=== PATIENT | female | born 1955 | race African-American/Black ===

== ENCOUNTER 2019-04-13 15:22 | Emergency (ER) | payer SELFPAY ==
--- OUTSIDE RECORDS SUMMARY | 2019-04-13 15:25 | XMS REPORT | Clinical Summary ---
Author Author Darrius Uatsdin Organization [facility] Address Unknown Phone Unavailable Care Team Providers Care Podiatric Technician Name Role Phone Mary Weeks MD PCP Allergies Comments Active Allergy Reactions Severity Noted Date No Known Drug Allergies 06/19/2016 Shellfish Derived Rash Low 04/06/2019 Medications End Date Status Medication Sig Dispensed Refills Start Date Active multivitamin capsule Take 1 0 capsule by mouth daily. Active cyanocobalamin, vitamin Inject as 0 B-12, (B-12 COMPLIANCE directed once INJ) a week. Active betamethasone APPLY 60 mL 0 dipropionate 0.05 % TOPICALLY TO 9 lotion AFFECTED AREA TWICE DAILY DIRECTED 11/18/2018 Discontinued furosemide (LASIX) 20 mg Take 0.5 30 tablet 0 tabletIndications: Fluid tablets (10 7 retention mg total) by mouth daily as needed (swelling). 11/18/2018 Discontinued betamethasone Apply 60 mL 0 dipropionate 0.05 % topically 2 7 lotionIndications: Eczema (two) times a of both upper extremities day. 12/02/2018 esomeprazole (NexIUM) 20 Take 1 30 capsule 0 MG capsuleIndications: capsule (20 9 Chest pain, unspecified mg total) by type mouth daily before breakfast for 14 days. Active Problems Problem Noted Date Fluid retention 02/11/2017 Overview: Uses lasix prn; states she has some SOB when walking up and down stairs. No chest pain. Had normal EKG in past. L ast Assessment & Plan: Check BNP and CMP for now; ok to continue prn lasix. Eczema of both upper extremities 02/11/2017 Overview: Uses steroid sparingly. L ast Assessment & Plan: Renew steroids. History of colonoscopy 02/11/2017 Overview: Normal - no polys - repeat due L ast Assessment & Plan: Will plan to re-evaluate at time of physical. Visual impairment 02/11/2017 Overview: Needs to see ophtho L ast Assessment & Plan: Will refer to [facility] Encounters Care Team Description Date Type Specialty Geeta Gifford MA 04/09/2019 Telephone Gastroenterology Mary Weeks MD Pre-operative clearance (Primary Dx) 04/07/2019 Office Visit Internal Medicine Mary Weeks MD 04/07/2019 Refill Internal Medicine Jovany De La Torre MD EGD 04/06/2019 Surgery Gastroenterology D[facility]aren thumb region, Michael Preston MD 04/06/2019 Anesthesia Gastroenterology Event Jovany De La Torre MD Visual impairment (Primary Dx) 04/06/2019 Hospital Gastroenterology Encounter Geeta Gifford MA 04/05/2019 Telephone Gastroenterology Jovany De La Torre MD 04/01/2019 Telephone Gastroenterology Jovany De La Torre MD Colon cancer screening (Primary Dx); Class 3 severe obesity in adult, unspecified BMI, unspecified obesity type, unspecified whether serious comorbidity present (HCC); Gastroesophageal reflux disease without esophagitis 03/26/2019 Office Visit Gastroenterology Geeta Gifford MA 03/25/2019 Telephone Gastroenterology Mary Weeks MD 03/08/2019 Telephone Internal Medicine Bossman Echols MD Richards, Sara K, FLORY Obesity, morbid, BMI 50 or higher (HCC) (Primary Dx) 03/02/2019 Consult Weight Management Bossman Echols MD Barthmare, Stefanie Claire, LPC Morbid obesity (HCC) 03/02/2019 Consult Weight Management Juma Goodman MD 02/23/2019 Telephone Gastroenterology Kamryn Braun MA Preop examination (Primary Dx); Morbid obesity (HCC) 02/23/2019 Orders Only General Surgery Bossman Echols MD Morbid obesity (HCC) (Primary Dx) 02/10/2019 Office Visit General Surgery Mary Weeks MD Chest pain, unspecified type 11/18/2018 Lab Lab Mary Weeks MD Chest pain, unspecified type (Primary Dx); Gastroesophageal reflux disease without esophagitis; Elevated BP without diagnosis of hypertension; Obesities, morbid (HCC) 11/18/2018 Office Visit Internal Medicine after 04/12/2018 Family History Medical History Relation Name Comments Lung cancer Brother Stroke Father Arthritis Mother Stroke Mother Colon cancer Neg Hx Colon polyps Neg Hx Relation Name Status Comments Brother Father Mother Social History Date Tobacco Use Types Packs/Day Years Used Never Smoker Smokeless Tobacco: Never Used Alcohol Use Drinks/Week oz/Week Comments No Sex Assigned at Date Recorded Not on file Industry Job Start Date Occupation Not on file Not on file Not on file Travel End Travel History Travel Start No recent travel history available. Last Filed Vital Signs Time Taken Vital Sign Reading 04/07/2019 12:06 PM CDT Blood Pressure 147/78 04/07/2019 12:06 PM CDT Pulse 61 04/07/2019 12:06 PM CDT Temperature 36.7 C (98.1 F) 04/07/2019 12:06 PM CDT Respiratory Rate 16 04/07/2019 12:06 PM CDT Oxygen Saturation 97% - Inhaled Oxygen - Concentration 04/07/2019 12:06 PM CDT Weight 122 kg (270 lb) 04/07/2019 12:06 PM CDT Height 162.6 cm (5' 4") 04/07/2019 12:06 PM CDT Body Mass Index 46.35 Plan of Treatment Care Team Description Date Type Specialty Mary Weeks MD [address] [facility] [address] [place] [address] [phone] 10/22/2019 Office Visit Internal Medicine Health Maintenance Due Date Last Done Comments BREAST CANCER SCREENING 2004 SHINGLES VACCINES (#1) 2004 INFLUENZA VACCINE 06/03/2019 COLONOSCOPY SCREENING 04/06/2024 04/06/2019, 04/06/2019 Procedures Comments Procedure Name Priority Date/Time Associated Diagnosis ECG 12-LEAD Routine 04/07/2019 Pre-operative clearance 11:37 AM CDT SURGICAL PATHOLOGY Routine 04/06/2019 REQUEST 12:12 PM CDT COLONOSCOPY 04/06/2019 Colon cancer screening 10:00 AM CDT Morbid obesity (HCC) ESOPHAGOGASTRODUODENOSCOP 04/06/2019 Colon cancer screening Y (EGD) 10:00 AM CDT Morbid obesity (HCC) US ABDOMEN COMPLETE Routine 03/11/2019 Preop examination 8:26 AM CDT Morbid obesity (HCC) AMB REFERRL TO WEIGHT Routine 03/02/2019 Morbid obesity (HCC) MANAGEMENT- BARIATRIC 8:52 AM CDT SERVICES COMPREHENSIVE METABOLIC Routine 11/18/2018 Chest pain, unspecified PANEL 9:28 AM BIOMATERIALS ENGINEER type CBC WITH PLATELET AND Routine 11/18/2018 Chest pain, unspecified DIFFERENTIAL 9:28 AM BIOMATERIALS ENGINEER type ECG 12-LEAD Routine 11/18/2018 Chest pain, unspecified 8:58 AM BIOMATERIALS ENGINEER type after 04/12/2018 Results * ECG 12 lead (04/07/2019 11:37 AM CDT) Only the most recent of 2 results within the time period is included. Ventricular 69 [facility] rate Atrial rate 69 [facility] CO interval 148 [facility] QRSD interval 84 [facility] QT interval 400 [facility] QTC interval 428 [facility] P axis 1 68 [facility] QRS axis 1 9 [facility] T wave axis 10 H MUSE EKG impression Sinus rhythm with marked sinus [facility] MUSE arrhythmia-Otherwise normal ECG-In automated comparison with ECG of 18-NOV-2018 08:58,-No significant change was found- Specimen Narrative Performed At Performing Organization Address City/[facility]/Zipcode Phone Number [facility] [place] [facility] [address] [place] [address] * Surgical pathology request (04/06/2019 12:12 PM CDT) [facility] DEPARTMENT OF PATHOLOGY AND GENOMIC MEDICINE Surgical See link below for PDF Lab [facility] DEPARTMENT pathology Report OF PATHOLOGY report AND GENOMIC MEDICINE Result status This is Final Report for [facility] DEPARTMENT [id number] OF PATHOLOGY AND GENOMIC MEDICINE Specimen Performing Organization Address City/State/Zipcode Phone Number [facility] DEPARTMENT OF [address] [place] [address] PATHOLOGY AND GENOMIC MEDICINE * US Abdomen Complete (03/11/2019 8:26 AM CDT) Specimen Narrative Performed At EXAM: US ABDOMEN COMPLETE [facility] CLINICAL HISTORY:Z01.818 Encounter for other preprocedural examination, E66.01 Morbid (severe) obesity due to excess calories, pre-operative screening and morbid obesity COMPARISON: No TECHNIQUE: Complete abdominal ultrasound obtained. FINDINGS: Mild diffuse fatty liver. No focal lesion identified. Liver is not enlarged, 16 cm. .Gallbladder appears normal. Main portal vein patent and normal in size, 11 mm. Common bile millimeters within normal range. . . Visualized portions of pancreas unremarkable; distal body and tail obscured by bowel gas.Spleen demonstrates nothing unusual. Renal survey images show kidneys measure 10.2cm on the right and 11.5cm on the left with no hydronephrosis on either side. Visualized portions of abdominal aorta and IVC unremarkable.No ascites or pleural effusion identified. IMPRESSION: 1. Mild fatty liver otherwise unremarkable. [id number] Procedure Note Interface, Radiology Results Incoming - 03/11/2019 8:31 AM CDT EXAM: US ABDOMEN COMPLETE CLINICAL HISTORY: Z01.818 Encounter for other preprocedural examination, E66.01 Morbid (severe) obesity due to excess calories, pre-operative screening and morbid obesity COMPARISON: No TECHNIQUE: Complete abdominal ultrasound obtained. FINDINGS: Mild diffuse fatty liver. No focal lesion identified. Liver is not enlarged, 16 cm. . Gallbladder appears normal. Main portal vein patent and normal in size, 11 mm. Common bile millimeters within normal range. . . Visualized portions of pancreas unremarkable; distal body and tail obscured by bowel gas. Spleen demonstrates nothing unusual. Renal survey images show kidneys measure 10.2 cm on the right and 11.5 cm on the left with no hydronephrosis on either side. Visualized portions of abdominal aorta and IVC unremarkable. No ascites or pleural effusion identified. IMPRESSION: 1. Mild fatty liver otherwise unremarkable. [id number] Performing Organization Address City/State/Zipcode Phone Number [facility] [address] [place] [address] * AMB Referral to Weight Management-Bariatric Services (03/02/2019 8:52 AM CDT) * CBC with platelet and differential (11/18/2018 9:28 AM BIOMATERIALS ENGINEER) WBC 5.6 3.8 - 10.8 [facility] Thousand/uL [facility] [place] RBC 4.73 3.80 - 5.10 [facility] Million/uL [facility] [place] HGB 14.2 11.7 - 15.5 g/dL [facility] [place] HCT 41.9 35.0 - 45.0 % [facility] [place] MCV 88.6 80.0 - 100.0 fL [facility] [place] MCH 30.0 27.0 - 33.0 pg [facility] [place] MCHC 33.9 32.0 - 36.0 g/dL [facility] [place] RDW 13.4 11.0 - 15.0 % [facility] [place] Platelet count 319 140 - 400 [facility] Thousand/uL [facility] MPV 10.8 7.5 - 12.5 fL [facility] [place] Neutrophils, 2,856 1,500 - 7,800 [facility] absolute cells/uL [facility] [place] Lymphocytes, 2,206 850 - 3,900 cells/uL [facility] absolute [facility] [place] Monocytes, 431 200 - 950 cells/uL [facility] absolute [facility] [place] Eosinophils, 67 15 - 500 cells/uL [facility] [place] Basophils, 39 0 - 200 cells/uL [facility] absolute [facility] [place] Neutrophils 51 % [facility] [place] Lymphocytes 39.4 % [facility] [place] Monocytes 7.7 % [facility] [place] Eosinophils 1.2 % [facility] [place] Basophils + RC 0.7 % [facility] [place] Specimen Blood Resulting Agency Comment Performing Organization Information: Site ID: [id number] Name: [facility] Address: [address] [place] [id number] Director: Jennifer Cheung Performing Organization Address City/State/Zipcode Phone Number [facility] [address] * Comprehensive metabolic panel (11/18/2018 9:28 AM BIOMATERIALS ENGINEER) Glucose 91 65 - 99 mg/dL [facility] Comment: [facility] Fasting [place] reference interval BUN, whole 13 7 - 25 mg/dL [facility] blood [facility] [place] Creatinine 1.11 (H) 0.50 - 0.99 mg/dL [facility] Comment: [facility] For patients >49 years of age, [place] the reference limit for Creatinine is approximately 13% higher for people identified as -[place]. EGFR Non-Afr. 53 (L) > OR=60 [facility] [place] mL/min/1.73m2 [facility] [place] EGFR 61 > OR=60 [facility] [place] mL/min/1.73m2 [facility] BUN/creatinine 12 6 - 22 (calc) [facility] ratio [facility] Sodium 138 135 - 146 mmol/L [facility] [place] Potassium 4.6 3.5 - 5.3 mmol/L [facility] [place] Chloride 103 98 - 110 mmol/L [facility] [place] CO2 30 20 - 32 mmol/L [facility] [place] Calcium 9.2 8.6 - 10.4 mg/dL [facility] [place] Protein 7.2 6.1 - 8.1 g/dL [facility] [place] Albumin, S 3.8 3.6 - 5.1 g/dL [facility] [place] Globulin, total 3.4 1.9 - 3.7 g/dL [facility] (calc) [facility] [place] Albumin/globuli 1.1 1.0 - 2.5 (calc) [facility] n ratio [facility] [place] Total bilirubin 0.4 0.2 - 1.2 mg/dL [facility] [place] Alkaline 54 33 - 130 U/L [facility] phosphatase [facility] [place] AST 20 10 - 35 U/L [facility] [place] ALT 16 6 - 29 U/L [facility] [place] Specimen Blood Resulting Agency Comment Performing Organization Information: Site ID: [id number] Name: [facility] Address: [address] [place] [id number] Director: Jennifer Cheung Performing Organization Address City/State/Zipcode Phone Number [facility] [place] [address] [place], [place] [phone] after 04/12/2018 Insurance Type Payer Benefit Subscriber ID Effective Phone Address Plan / Dates Group HMO CIGNA CIGNA xxxxxxxxxxx [id number] LOCAL resent PLUS/SUREF IT Advance Directives Patient has advance care planning documents on file. For more information, naren arthur contact: Darrius Carmona [address] [place] [address]
--- OUTSIDE RECORDS SUMMARY | 2019-04-13 15:25 | XMS REPORT | Encounter Summary ---
Author Organization Unknown Address [address] [place] [address] Phone [phone] Reason for Visit Travel Healthy Instructions 1. Counseling Malarone 250 mg-100 mg tablet Discussion Note: None recorded. Patient educational handouts: No information available. Plan of Care Patient Instructions Pt instructed to read over travel healthy report for further information on the trip.Avoid all possible contaminated water source or uncook food. If pt has any questions. Call clinic. Reminders Provider Appointments None recorded. Lab None recorded. Referral None recorded. Procedures None recorded. Surgeries None recorded. Imaging None recorded. Medications Name Start Date furosemide 20 mg tablet Malarone 250 mg-100 mg tablet Take 1 tablet daily 2 days before trip, 1 tablet daily during trip, then 1 tablet daily x7days after trip. Medications Administered None recorded. Vitals Height Weight BMI Blood Pressure 5 ft 4 in 260 lbs 44.6 kg/m2 128/82 mm[Hg] Lab Results None recorded. Allergies Code Code System Name Reaction Severity Status Onset NKDA Problems None recorded. Procedures Date Name Performed by Tubal Ligation Information not available Vaccine List Vaccine Type Tdap 05/02/2014 Social History Smoking Status Never Smoker Past Encounters 08/28/2017 Counseling Brandi Hardy, CERAMIC DESIGNER: [address] [place] [address], Ph. History of Present Illness Travel Healthy Request Reported By: Patient HPI: Travel Healthy Request (normal) No Symptoms. Travel Healthy Eligibility Questions Reviewed/Patient Eligible Review of Systems Basic Reported By: Patient Constitutional: Constitutional: no fever Eyes: Eyes: no eye complaints [id number]-Throat: Ears: no ear complaints. Nose: no nose/sinus problems. Mouth/Throat: no sore throat, no bleeding gums, no mouth complaints, no teeth problems Cardiovascular: Cardiovascular: no chest pain, no shortness of breath, no known heart murmur Respiratory: Respiratory: no cough, no wheezing, no shortness of breath Gastrointestinal: Gastrointestinal: no abdominal pain, no vomiting / diarrhea Genitourinary: Genitourinary: no urinary complaints, no discharge Musculoskeletal: Musculoskeletal: no muscle aches, no muscle weakness, no arthralgias/joint pain, no back pain Skin: Skin: no abnormal / changing mole, no jaundice, no rashes Neurologic: Neurologic: no loss of consciousness, no weakness, no numbness, no seizures, no dizziness, no headaches Physical Exam Travel Healthy Examination Reported By: Patient Constitutional: General Appearance: healthy-appearing, well-nourished, well-developed. Level of Distress: NAD Psychiatric: Mental Status: active and alert Lungs: Respiratory effort: no dyspnea. Auscultation: breath sounds normal Cardiovascular: Heart Auscultation: RRR, no murmurs
--- OUTSIDE RECORDS SUMMARY | 2019-04-13 15:25 | XMS REPORT | Continuity of Care Document ---
Author Author [facility] Interface Address Unknown Phone Unavailable Problems Problem Status Onset Date Classification Date Reported Comments Source Counseling 08/28/2017 Diagnosis 08/29/2017 [facility] Medications Medication Details Route Status Patient Instructions Ordering Provider Order Date Source Furosemide 20 MG Oral Tablet furosemide 20 mg tablet Active [facility] Atovaquone 250 MG / proguanil hydrochloride 100 MG Oral Tablet [Malarone] Malarone 250 mg-100 mg tablet Take 1 tablet daily 2 days before trip, 1 tablet daily during trip, then 1 tablet daily x7days after trip. Active [facility] Allergies, Adverse Reactions, Alerts Substance Category Reaction Severity Reaction type Status Date Reported Comments Source Immunizations Immunization Date Given Site Status Last Updated Comments Source Tdap 05/02/2014 completed [facility] Results Order Name Results Value Reference Range Date Interpretation Comments Source Vital Signs Vital Sign Value Date Comments Source Diastolic (mm Hg) 82 08/28/2017 [facility] Height 64 08/28/2017 [facility] Systolic (mm Hg) 128 08/28/2017 [facility] Weight 260 08/28/2017 [facility] Encounters Location Location Details Encounter Type Encounter Number Reason For Visit Attending Provider ADM Date DC Date Status Source PR - [facility] - [id number] Brandi Hardy, SALES SUPERVISOR: [address] [facility] , [place] [address], Ph. [id number] Brandi Hardy 08/28/2017 [facility] Procedures Procedure Code Date Perfomer Comments Source Tubal Ligation [facility]
== END 2019-04-13 15:34 | disposition short-term general hospital (02) ==
LOC: ER 15:22
DX: T59.91XA Toxic effect of unspecified gases, fumes and vapors, accidental (unintentional), initial encounter (principal); Z53.21 Procedure and treatment not carried out due to patient leaving prior to being seen by health care provider